=== PATIENT | female | born 1950 | race Caucasian/White ===

== ENCOUNTER 2021-10-12 16:57 | Observation (INO) ==
[2021-10-12] MEDS ORDERED: Naloxone 0.4 MG/ML INJ IVP PRN (20:02)
[2021-10-12] MEDS ORDERED: Ondansetron 4 MG/2 ML VIAL IVP PRN (20:02)
[2021-10-12] MEDS ORDERED: *HR* Dextrose 50 % in Water (Syg) 50 ML SYRINGE IVP PRN (21:25)
[2021-10-12] MEDS ORDERED: Dextrose Gel 15 GM/37.5 ML TUBE PO PRN ×2 (21:25)
[2021-10-12] MEDS ORDERED: D5% in Water 1,000 ML IVC PRN (21:25)
[2021-10-12] MEDS: Insulin LISPRO 300 UNITS/3 ML VIAL SUBQ SCH (23:13)
[2021-10-12] MEDS: 0.9 % Sodium Chloride 1,000 ML IVC SCH (23:15)
[2021-10-12] MEDS: Acetaminophen 325 MG TABLET PO PRN (23:15)
[2021-10-13] MEDS: traZODone 50 MG TABLET PO SCH ×2 (01:32→20:53)
[2021-10-13 03:49] LABS: Bacteria,Urine Few per hpf (None-Few); Bilirubin,Urine Negative (Negative); Blood,Urine Negative (Negative); Clarity,Urine Clear (Clear); Color,Urine Yellow (Yellow); Glucose,Urine (UA) Normal (Normal); Ketones,Urine Negative (Negative); Leukocyte Esterase,Urine Negative (Negative); Mucus,Urine Few per lpf (None-Few); Nitrite,Urine Negative (Negative); PH,Urine 5.5 pH Units (5.0-8.0); Protein,Urine 70 mg/dL (Neg-Trace); RBC,Urine 0-3 per hpf (0-3); Specific Gravity,Urine > 1.030 (1.010-1.025); Urobilinogen,Urine Normal (Normal); WBC,Urine 0-3 per hpf (0-3)
[2021-10-13 05:16] LABS: Basophils # 0.1 K/mcL (0.0-0.2); Basophils % 0.6 %; Eosinophils # 0.5 K/mcL (0.0-0.6); Eosinophils % 5.9 %; Hematocrit 29.6 % (35.3-44.9); Hemoglobin 9.1 g/dL (11.5-15.4); Immature Granulocytes % 0.3 % (0-4); Lymphocytes # 2.6 K/mcL (0.6-4.6); Lymphocytes % 28.1 %; Mean Corpuscular HGB Conc 30.7 g/dL (31.6-35.5); Mean Corpuscular Hemoglobin 26.7 pg (28.0-33.3); Mean Corpuscular Volume 86.8 fL (83.0-100.0); Mean Platelet Volume 9.7 fL (9.4-12.4); Monocytes # 0.8 K/mcL (0.0-1.3); Monocytes % 8.3 %; Neutrophils # 5.2 K/mcL (1.6-8.9); Platelet Count 272 K/mcL (140-400); Red Blood Count 3.41 M/mcL (3.82-4.97); Red Cell Distribution Width 14.5 % (11.5-14.5); Segmented Neutrophils % 56.8 %; White Blood Count 9.1 K/mcL (4.3-11.1)
[2021-10-13 05:25] LABS: INR 1.2
[2021-10-13 05:32] LABS: BUN/Creatinine Ratio 25 (6-26); Blood Urea Nitrogen 26 mg/dL (8-23); Calcium 8.8 mg/dL (8.6-10.3); Carbon Dioxide 27 mEq/L (23-29); Chloride 103 mEq/L (98-107); Chol/HDL Ratio 5.9 (0-4.9); Cholesterol 223 mg/dL (< 200); Glucose 177 mg/dL (70-105); HDL Cholesterol 38 mg/dL (40-59); LDL Cholesterol,Calculated 118 mg/dL (< 100); Magnesium 1.6 mg/dL (1.6-2.6); Osmolality,Calculated 295 (280-300); Potassium 4.3 mEq/L (3.5-5.1); Sodium 138 mEq/L (136-145); Triglycerides 336 mg/dL (< 150); eGFR For African Americans > 60 (> 60); eGFR For Non-African Americans 51 (> 60)
[2021-10-13 05:46] LABS: Estimated Average Glucose 200 mg/dl; Hemoglobin A1C 8.6 %
[2021-10-13] MEDS: Gabapentin 300 MG CAPSULE PO SCH ×3 (08:33→20:53)
[2021-10-13] MEDS: 0.9 % Sodium Chloride 1,000 ML IVC SCH (08:33)
[2021-10-13] MEDS: Insulin LISPRO 300 UNITS/3 ML VIAL SUBQ SCH ×4 (08:33→20:48)
[2021-10-13] MEDS: Magnesium Oxide 400 MG TABLET PO SCH (08:34)
[2021-10-13] MEDS: hydroCHLOROthiazide 25 MG TABLET PO SCH (08:35)
[2021-10-13] MEDS ORDERED: GlipiZIDE 5 MG TABLET PO SCH (09:00)
[2021-10-13] MEDS: Cholecalciferol (D-3) 1,000 UNIT (25MCG) TABLET PO SCH (14:17)
[2021-10-13] MEDS: cephALEXin 500 MG CAPSULE PO SCH ×2 (14:17→20:52)
[2021-10-13] MEDS: Acetaminophen 325 MG TABLET PO PRN (17:49)
[2021-10-13] MEDS: rOPINIRole 1 MG TABLET PO SCH (20:52)
[2021-10-14 04:22] LABS: Basophils # 0.1 K/mcL (0.0-0.2); Basophils % 0.5 %; Eosinophils # 0.6 K/mcL (0.0-0.6); Eosinophils % 5.4 %; Hematocrit 30.3 % (35.3-44.9); Hemoglobin 9.8 g/dL (11.5-15.4); Immature Granulocytes % 0.4 % (0-4); Lymphocytes # 2.5 K/mcL (0.6-4.6); Lymphocytes % 22.2 %; Mean Corpuscular HGB Conc 32.3 g/dL (31.6-35.5); Mean Corpuscular Volume 86.6 fL (83.0-100.0); Mean Platelet Volume 9.9 fL (9.4-12.4); Monocytes # 0.6 K/mcL (0.0-1.3); Monocytes % 5.7 %; Neutrophils # 7.3 K/mcL (1.6-8.9); Platelet Count 309 K/mcL (140-400); Red Cell Distribution Width 14.3 % (11.5-14.5); Segmented Neutrophils % 65.8 %; White Blood Count 11.2 K/mcL (4.3-11.1)
[2021-10-14 04:25] LABS: BUN/Creatinine Ratio 26 (6-26); Blood Urea Nitrogen 28 mg/dL (8-23); Calcium 8.6 mg/dL (8.6-10.3); Carbon Dioxide 25 mEq/L (23-29); Chloride 101 mEq/L (98-107); Glucose 259 mg/dL (70-105); Osmolality,Calculated 294 (280-300); Potassium 4.3 mEq/L (3.5-5.1); Sodium 135 mEq/L (136-145); eGFR For African Americans > 60 (> 60); eGFR For Non-African Americans 50 (> 60)
[2021-10-14] MEDS: Insulin LISPRO 300 UNITS/3 ML VIAL SUBQ SCH ×4 (07:55→20:28)
[2021-10-14] MEDS: cephALEXin 500 MG CAPSULE PO SCH ×3 (07:56→20:28)
[2021-10-14] MEDS: Cholecalciferol (D-3) 1,000 UNIT (25MCG) TABLET PO SCH (07:56)
[2021-10-14] MEDS: hydroCHLOROthiazide 25 MG TABLET PO SCH (07:56)
[2021-10-14] MEDS: Magnesium Oxide 400 MG TABLET PO SCH (07:57)
[2021-10-14] MEDS: Gabapentin 300 MG CAPSULE PO SCH ×3 (07:57→20:28)
[2021-10-14] MEDS: Acetaminophen 325 MG TABLET PO PRN (13:06)
[2021-10-14] MEDS: *HR* Heparin 5,000 UNIT/ML VIAL SQ SCH (17:53)
[2021-10-14] MEDS: rOPINIRole 1 MG TABLET PO SCH (20:28)
[2021-10-14] MEDS: traZODone 50 MG TABLET PO SCH (20:28)
[2021-10-15 05:03] LABS: Basophils # 0.1 K/mcL (0.0-0.2); Basophils % 0.7 %; Eosinophils # 0.5 K/mcL (0.0-0.6); Eosinophils % 6.8 %; Hematocrit 29.9 % (35.3-44.9); Hemoglobin 9.5 g/dL (11.5-15.4); Immature Granulocytes % 0.4 % (0-4); Lymphocytes # 2.7 K/mcL (0.6-4.6); Lymphocytes % 35.5 %; Mean Corpuscular HGB Conc 31.8 g/dL (31.6-35.5); Mean Corpuscular Hemoglobin 27.3 pg (28.0-33.3); Mean Corpuscular Volume 85.9 fL (83.0-100.0); Mean Platelet Volume 9.9 fL (9.4-12.4); Monocytes # 0.6 K/mcL (0.0-1.3); Monocytes % 7.3 %; Neutrophils # 3.8 K/mcL (1.6-8.9); Platelet Count 294 K/mcL (140-400); Red Blood Count 3.48 M/mcL (3.82-4.97); Red Cell Distribution Width 14.1 % (11.5-14.5); Segmented Neutrophils % 49.3 %; White Blood Count 7.7 K/mcL (4.3-11.1)
[2021-10-15 05:20] LABS: BUN/Creatinine Ratio 29 (6-26); Blood Urea Nitrogen 28 mg/dL (8-23); Calcium 8.6 mg/dL (8.6-10.3); Carbon Dioxide 26 mEq/L (23-29); Chloride 101 mEq/L (98-107); Glucose 203 mg/dL (70-105); Osmolality,Calculated 289 (280-300); Potassium 4.3 mEq/L (3.5-5.1); Sodium 134 mEq/L (136-145); eGFR For African Americans > 60 (> 60); eGFR For Non-African Americans 56 (> 60)
[2021-10-15] MEDS: *HR* Heparin 5,000 UNIT/ML VIAL SQ SCH ×2 (06:37→18:00)
[2021-10-15] MEDS: Gabapentin 300 MG CAPSULE PO SCH ×3 (08:53→19:43)
[2021-10-15] MEDS: Cholecalciferol (D-3) 1,000 UNIT (25MCG) TABLET PO SCH (08:53)
[2021-10-15] MEDS: cephALEXin 500 MG CAPSULE PO SCH ×3 (08:53→19:43)
[2021-10-15] MEDS: hydroCHLOROthiazide 25 MG TABLET PO SCH (08:54)
[2021-10-15] MEDS: Magnesium Oxide 400 MG TABLET PO SCH (08:54)
[2021-10-15] MEDS: Insulin LISPRO 300 UNITS/3 ML VIAL SUBQ SCH ×4 (09:02→19:43)
[2021-10-15] MEDS: Insulin NPH/REG 70/30 100 UNIT/ML (x5UNIT) SUBQ SCH (17:03)
[2021-10-15] MEDS: traZODone 50 MG TABLET PO SCH (19:43)
[2021-10-15] MEDS: rOPINIRole 1 MG TABLET PO SCH (19:43)
[2021-10-16] MEDS: *HR* Heparin 5,000 UNIT/ML VIAL SQ SCH ×2 (05:54→17:31)
[2021-10-16] MEDS: Cholecalciferol (D-3) 1,000 UNIT (25MCG) TABLET PO SCH (08:57)
[2021-10-16] MEDS: amLODIPine 5 MG TABLET PO SCH (08:59)
[2021-10-16] MEDS ORDERED: Insulin NPH/REG 70/30 100 UNIT/ML (x5UNIT) SUBQ SCH (09:00)
[2021-10-16] MEDS: Gabapentin 300 MG CAPSULE PO SCH ×3 (09:00→19:20)
[2021-10-16] MEDS: hydroCHLOROthiazide 25 MG TABLET PO SCH (09:01)
[2021-10-16] MEDS: cephALEXin 500 MG CAPSULE PO SCH ×3 (09:01→19:20)
[2021-10-16] MEDS: Magnesium Oxide 400 MG TABLET PO SCH (09:01)
[2021-10-16] MEDS: Insulin LISPRO 300 UNITS/3 ML VIAL SUBQ SCH ×4 (09:02→19:21)
[2021-10-16] MEDS: Insulin NPH/REG 70/30 100 UNIT/ML (x5UNIT) SUBQ SCH ×2 (09:04→17:30)
[2021-10-16] MEDS: rOPINIRole 1 MG TABLET PO SCH (19:20)
[2021-10-16] MEDS: traZODone 50 MG TABLET PO SCH (19:21)
[2021-10-17] MEDS: *HR* Heparin 5,000 UNIT/ML VIAL SQ SCH ×2 (06:00→17:03)
[2021-10-17] MEDS: hydroCHLOROthiazide 25 MG TABLET PO SCH (09:09)
[2021-10-17] MEDS: amLODIPine 5 MG TABLET PO SCH (09:09)
[2021-10-17] MEDS: Cholecalciferol (D-3) 1,000 UNIT (25MCG) TABLET PO SCH (09:09)
[2021-10-17] MEDS: Gabapentin 300 MG CAPSULE PO SCH ×3 (09:09→21:17)
[2021-10-17] MEDS: Magnesium Oxide 400 MG TABLET PO SCH (09:09)
[2021-10-17] MEDS: cephALEXin 500 MG CAPSULE PO SCH ×3 (09:10→21:18)
[2021-10-17] MEDS: Insulin LISPRO 300 UNITS/3 ML VIAL SUBQ SCH ×5 (09:10→21:43)
[2021-10-17] MEDS: Insulin NPH/REG 70/30 100 UNIT/ML (x5UNIT) SUBQ SCH ×2 (09:15→17:03)
[2021-10-17] MEDS: rOPINIRole 1 MG TABLET PO SCH (21:18)
[2021-10-17] MEDS: traZODone 50 MG TABLET PO SCH (21:19)
[2021-10-18 04:57] LABS: Basophils # 0.1 K/mcL (0.0-0.2); Basophils % 0.7 %; Eosinophils # 0.6 K/mcL (0.0-0.6); Eosinophils % 4.7 %; Hematocrit 32.8 % (35.3-44.9); Hemoglobin 9.9 g/dL (11.5-15.4); Immature Granulocytes % 0.6 % (0-4); Lymphocytes # 3.8 K/mcL (0.6-4.6); Lymphocytes % 33.1 %; Mean Corpuscular HGB Conc 30.2 g/dL (31.6-35.5); Mean Corpuscular Hemoglobin 26.5 pg (28.0-33.3); Mean Corpuscular Volume 87.9 fL (83.0-100.0); Mean Platelet Volume 9.5 fL (9.4-12.4); Monocytes # 0.8 K/mcL (0.0-1.3); Monocytes % 7.2 %; Neutrophils # 6.2 K/mcL (1.6-8.9); Platelet Count 322 K/mcL (140-400); Red Blood Count 3.73 M/mcL (3.82-4.97); Red Cell Distribution Width 14.2 % (11.5-14.5); Segmented Neutrophils % 53.7 %
[2021-10-18 04:59] LABS: White Blood Count 11.6 K/mcL (4.3-11.1)
[2021-10-18 05:14] LABS: Calcium 9.1 mg/dL (8.6-10.3); Potassium 4.1 mEq/L (3.5-5.1)
[2021-10-18] MEDS: *HR* Heparin 5,000 UNIT/ML VIAL SQ SCH ×2 (05:46→17:54)
[2021-10-18] MEDS: Cholecalciferol (D-3) 1,000 UNIT (25MCG) TABLET PO SCH (08:07)
[2021-10-18] MEDS: amLODIPine 5 MG TABLET PO SCH (08:07)
[2021-10-18] MEDS: hydroCHLOROthiazide 25 MG TABLET PO SCH (08:08)
[2021-10-18] MEDS: Gabapentin 300 MG CAPSULE PO SCH ×3 (08:09→22:26)
[2021-10-18] MEDS: Insulin NPH/REG 70/30 100 UNIT/ML (x5UNIT) SUBQ SCH ×2 (08:10→17:54)
[2021-10-18] MEDS: Magnesium Oxide 400 MG TABLET PO SCH (08:10)
[2021-10-18] MEDS: Insulin LISPRO 300 UNITS/3 ML VIAL SUBQ SCH ×4 (08:11→22:37)
[2021-10-18] MEDS: cephALEXin 500 MG CAPSULE PO SCH ×2 (15:39→22:36)
[2021-10-18] MEDS: rOPINIRole 1 MG TABLET PO SCH (22:36)
[2021-10-18] MEDS: traZODone 50 MG TABLET PO SCH (22:37)
[2021-10-19 05:08] LABS: Basophils # 0.1 K/mcL (0.0-0.2); Basophils % 0.7 %; Eosinophils # 0.6 K/mcL (0.0-0.6); Eosinophils % 4.7 %; Hematocrit 30.7 % (35.3-44.9); Hemoglobin 9.8 g/dL (11.5-15.4); Immature Granulocytes % 0.6 % (0-4); Lymphocytes # 4.4 K/mcL (0.6-4.6); Lymphocytes % 33.4 %; Mean Corpuscular HGB Conc 31.9 g/dL (31.6-35.5); Mean Corpuscular Hemoglobin 27.8 pg (28.0-33.3); Mean Corpuscular Volume 87.2 fL (83.0-100.0); Mean Platelet Volume 9.6 fL (9.4-12.4); Monocytes % 7.4 %; Platelet Count 347 K/mcL (140-400); Red Blood Count 3.52 M/mcL (3.82-4.97); Red Cell Distribution Width 14.3 % (11.5-14.5); Segmented Neutrophils % 53.2 %; White Blood Count 13.1 K/mcL (4.3-11.1)
[2021-10-19] MEDS: *HR* Heparin 5,000 UNIT/ML VIAL SQ SCH ×2 (05:54→17:08)
[2021-10-19] MEDS: Insulin LISPRO 300 UNITS/3 ML VIAL SUBQ SCH ×4 (07:16→19:39)
[2021-10-19] MEDS: Cholecalciferol (D-3) 1,000 UNIT (25MCG) TABLET PO SCH (08:54)
[2021-10-19] MEDS: hydroCHLOROthiazide 25 MG TABLET PO SCH (08:55)
[2021-10-19] MEDS: cephALEXin 500 MG CAPSULE PO SCH ×3 (08:55→19:29)
[2021-10-19] MEDS: Gabapentin 300 MG CAPSULE PO SCH ×3 (08:55→19:28)
[2021-10-19] MEDS: amLODIPine 5 MG TABLET PO SCH (08:55)
[2021-10-19] MEDS: Magnesium Oxide 400 MG TABLET PO SCH (08:56)
[2021-10-19] MEDS: Insulin NPH/REG 70/30 100 UNIT/ML (x5UNIT) SUBQ SCH ×2 (08:58→17:08)
[2021-10-19 13:27] LABS: Bilirubin,Urine Negative (Negative); Blood,Urine Negative (Negative); Clarity,Urine Clear (Clear); Color,Urine Light-Yellow (Yellow); Glucose,Urine (UA) Normal (Normal); Ketones,Urine Negative (Negative); Leukocyte Esterase,Urine Negative (Negative); Mucus,Urine Few per lpf (None-Few); Nitrite,Urine Negative (Negative); PH,Urine 5.5 pH Units (5.0-8.0); Protein,Urine 30 mg/dL (Neg-Trace); RBC,Urine 0-3 per hpf (0-3); Specific Gravity,Urine 1.018 (1.010-1.025); Squamous Epithelial Cell,Urine Few per hpf (None-Few); Urobilinogen,Urine Normal (Normal); WBC,Urine 0-3 per hpf (0-3)
[2021-10-19] MEDS: rOPINIRole 1 MG TABLET PO SCH (19:29)
[2021-10-19] MEDS: traZODone 50 MG TABLET PO SCH (19:29)
[2021-10-20] MEDS: *HR* Heparin 5,000 UNIT/ML VIAL SQ SCH ×2 (06:14→17:24)
[2021-10-20] MEDS: Magnesium Oxide 400 MG TABLET PO SCH (08:14)
[2021-10-20] MEDS: Gabapentin 300 MG CAPSULE PO SCH ×3 (08:14→21:09)
[2021-10-20] MEDS: amLODIPine 5 MG TABLET PO SCH (08:14)
[2021-10-20] MEDS: Cholecalciferol (D-3) 1,000 UNIT (25MCG) TABLET PO SCH (08:14)
[2021-10-20] MEDS: hydroCHLOROthiazide 25 MG TABLET PO SCH (08:14)
[2021-10-20] MEDS: Insulin NPH/REG 70/30 100 UNIT/ML (x5UNIT) SUBQ SCH ×2 (08:14→17:23)
[2021-10-20] MEDS: cephALEXin 500 MG CAPSULE PO SCH ×3 (08:14→21:10)
[2021-10-20] MEDS: Insulin LISPRO 300 UNITS/3 ML VIAL SUBQ SCH ×4 (08:18→21:17)
[2021-10-20] MEDS ORDERED: NON-FORMULARY MEDICATION 1 EACH EACH (Cholecalciferol (Vitamin D3) [Vitamin D3] 25 MCG Cap PO SCH (09:00)
[2021-10-20] MEDS: rOPINIRole 1 MG TABLET PO SCH (21:09)
[2021-10-20] MEDS: traZODone 50 MG TABLET PO SCH (21:09)
[2021-10-21 05:20] LABS: Basophils # 0.1 K/mcL (0.0-0.2); Basophils % 0.7 %; Eosinophils # 0.6 K/mcL (0.0-0.6); Eosinophils % 4.5 %; Hematocrit 34.2 % (35.3-44.9); Hemoglobin 10.5 g/dL (11.5-15.4); Immature Granulocytes % 0.7 % (0-4); Lymphocytes # 4.1 K/mcL (0.6-4.6); Lymphocytes % 33.6 %; Mean Corpuscular HGB Conc 30.7 g/dL (31.6-35.5); Mean Corpuscular Hemoglobin 26.8 pg (28.0-33.3); Mean Corpuscular Volume 87.2 fL (83.0-100.0); Mean Platelet Volume 9.5 fL (9.4-12.4); Monocytes # 0.9 K/mcL (0.0-1.3); Monocytes % 7.1 %; Neutrophils # 6.6 K/mcL (1.6-8.9); Platelet Count 373 K/mcL (140-400); Red Blood Count 3.92 M/mcL (3.82-4.97); Red Cell Distribution Width 14.2 % (11.5-14.5); Segmented Neutrophils % 53.4 %; White Blood Count 12.3 K/mcL (4.3-11.1)
[2021-10-21 05:37] LABS: Calcium 9.5 mg/dL (8.6-10.3); Magnesium 1.9 mg/dL (1.6-2.6); Potassium 4.2 mEq/L (3.5-5.1)
[2021-10-21] MEDS: *HR* Heparin 5,000 UNIT/ML VIAL SQ SCH (06:37)
[2021-10-21] MEDS: Insulin LISPRO 300 UNITS/3 ML VIAL SUBQ SCH ×2 (08:22→11:59)
[2021-10-21] MEDS: Cholecalciferol (D-3) 1,000 UNIT (25MCG) TABLET PO SCH (08:33)
[2021-10-21] MEDS: Gabapentin 300 MG CAPSULE PO SCH (08:34)
[2021-10-21] MEDS: hydroCHLOROthiazide 25 MG TABLET PO SCH (08:34)
[2021-10-21] MEDS: amLODIPine 5 MG TABLET PO SCH (08:34)
[2021-10-21] MEDS: cephALEXin 500 MG CAPSULE PO SCH (08:34)
[2021-10-21] MEDS: Magnesium Oxide 400 MG TABLET PO SCH (08:35)
[2021-10-21] MEDS: Insulin NPH/REG 70/30 100 UNIT/ML (x5UNIT) SUBQ SCH (08:40)
[2021-10-21] MEDS ORDERED: Aspirin Enteric Coated 81 MG Tablet PO SCH (09:00)
[2021-10-21 10:33] VITALS: BP 149/76; PULSE 68; TEMP 97.6; O2SAT 96
== END 2021-10-21 13:17 | disposition home health service (06) ==
LOC: 4WAOSI → SUATTDRO 19:39
PROVIDERS: ADMIT Internal Medicine; ATTEND Internal Medicine